=== PATIENT | male | born 1980 | race Caucasian/White ===

== ENCOUNTER → 2021-12-12 15:36 | Outpatient (CLI) | payer BC, SELFPAY ==
--- NOTE | ~2021-12-12 | XR_ITS ---
[id number] INDICATION: Neck pain TECHNIQUE: 4 views of the cervical spine. FINDINGS: No prior studies for comparison. The cervical spine is visualized to the cervicothoracic junction. There is no prevertebral soft tiss ue swelling, listhesis, or loss of vertebral body height. Intervertebral disc spaces are normal. Th e osseous central canal is patent. No displaced cervical spine fractures are identified. IMPRESSION: 1. No acute osseous abnormality of the cervical spine. Reviewed, dictated and finalized at location B. 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
== END ==
PROVIDERS: Visit Provider Nurse Practitioner Family
DX: M54.2 Cervicalgia (principal)
CPT/HCPCS: 72040

== ENCOUNTER → 2022-01-28 00:26 | Outpatient (CLI) | payer BC, SELFPAY ==
[2022-01-28 12:03] LABS: SARS-CoV-2 RNA PCR Negative
== END ==
PROVIDERS: PCP Family Medicine; Visit Provider Plastic Surgery
DX: Z01.812 Encounter for preprocedural laboratory examination (principal); Z20.822 Contact with and (suspected) exposure to COVID-19
CPT/HCPCS: C9803; U0003; U0005

== ENCOUNTER 2022-01-31 01:42 | Day surgery (SDC) | payer BC, SELFPAY ==
[2022-01-28 09:25] VITALS: BMI 23.0
--- NOTE | 2022-01-28 09:34 | PC.NURSE ---
Report to the Outpatient Waiting Room, entrance under the green pavilion located off [facility], at time 0915 on date 01/31/22. OR Time: 1115. - You and your visitor will be asked a series of questions to screen for COVID 19 for your protection. - A mask is required within the hospital. One visitor will be allowed to accompany the patient into the hospital. Patients visitor will be instructed to remain with patient at all times or leave the building. We will allow the visitor to come back to the postoperative area when patient is ready. Preoperative COVID Testing Requirements: COVID TEST 01/28 AT 0845 No COVID Test needed if: (proof is required; if not received patient will have Rapid Test prior to entry) - Patient has received COVID Vaccine at least 14 days prior to procedure date or - Patient has positive COVID test result within last 90 days of surgery date. COVID Test needed if above criteria is not met If not COVID vaccinated a COVID test must be conducted within 72 hours of surgery and patient is asked to isolate self from time of testing until procedure. You will go to the [facility] for your COVID testing. The [facility] is located at the corner of [address] [facility]. You will only be called if COVID results are positive and your surgeon may reschedule your elective surgery date. Patients may have clear liquids (water, carbonated beverages, clear teas, apple juice) until 3 hours prior to surgery with a maximum of 20 ounces. - No food from midnight until time of surgery Take the following medications with a SIP of water the morning of surgery: NONE Medications to discontinue per physician: N/A Date to take last dose: N/A Please no make-up, nail bengali, hairspray, perfume, deodorant, or body powder the day of surgery. No jewelry (including any body piercings) or valuables the day of surgery, leave them at home. Please take a shower or bath the night before, or the morning of, surgery with an antibacterial soap. Wear comfortable, loose fitting clothing. - Jewelry must be removed prior to entering the operating room. Rings and piercings that are not removed may be cut off. - The hospital will not accept responsibility for valuables. - Please leave all valuables, including medications, at home the day of surgery. If you are going home after surgery, a licensed driver operator must drive you home. - NO public transportation without another adult. - We recommend that an adult stay with you for 24 hours following discharge. - We also recommend that you do not drive, make important decision, drink alcoholic beverages, or take any drugs that were not prescribed by your health care provider for at least 24 hours after your discharge time. Follow any additional instructions given to you from your surgeon. Telephone instructions given to MATTHEW LEE and asked if any additional questions and then verbalized understanding. Patient advised to call surgeon office or pre surgery nurse liaison [phone] if any additional questions.
--- NOTE | 2022-01-31 07:09 | WPDHPUPDATE1 ---
History and Physical Update Update Date/Time: 01/31/22 07:09 History and Physical has been reviewed, including an updated exam of the patient. There are NO changes in the patient's condition. Risks, benefits, and alternatives have been discussed and questions answered. Patient agrees to proceed with procedure.
--- NOTE | 2022-01-31 07:19 | WPDANESEPPF ---
Anes - Initial Pre Proc Eval Procedure: Operation Date: 01/31/22 11:15 Proposed Procedures p Bilateral Open Carpal Tunnel Release - lFo Rasheed MD <Porfirio Black MD - Last Filed: 01/31/22 10:52> Date/Time: 01/31/22 07:19 <Porfirio Black MD - Last Filed: 01/31/22 10:52> Surgeon: Flo Rasheed MD <Porfirio Black MD - Last Filed: 01/31/22 10:52> Pre Op Diagnosis: bilat carpal tunnel syndrome <Porfirio Black MD - Last Filed: 01/31/22 10:52> Patient Data Age: 41 Gender: M Height: 1.8 m Weight: 74.84 kg <Porfirio Black MD - Last Filed: 01/31/22 10:52> Allergies Allergy/AdvReac Type Severity Reaction Status Date / Time SURGICAL GLUE Allergy Blister Uncoded 01/28/22 09:24 <Porfirio Black MD - Last Filed: 01/31/22 10:52> Home Medications Medication Instructions Recorded Confirmed Type No Home Medications 01/28/22 01/28/22 History <Porfirio Black MD - Last Filed: 01/31/22 10:52> Patient hx anesthesia problems: none <Villa Kelly DO - Last Filed: 01/31/22 10:16> Family hx anesthesia problems: none <Villa Kelly DO - Last Filed: 01/31/22 10:16> Results Review: All pre-operative results and documents have been reviewed as part of the pre-operative evaluation. <Porfirio Black MD - Last Filed: 01/31/22 10:52> [facility] Past Medical History Medical History: Medical History (Updated 01/31/22 @ 07:20 by Porfirio Black MD) Anxiety Bilateral carpal tunnel syndrome BMI 23.0-23.9, adult Cervical pain Hernia Ulnar neuropathy <Porfirio Black MD - Last Filed: 01/31/22 10:52> Family History Family History: Family History Father No problems noted. Mother Arthritis Sibling No problems noted. 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 Gender identity (if verbalized by the patient): Male Spiritual care concerns: No <Porfirio Black MD - Last Filed: 01/31/22 10:52> Anes - Eval Final PreProcedure Day of Procedure 01/31/22 07:19 <Porfirio Black MD - Last Filed: 01/31/22 10:52> Patient weight: normal <Porfirio Black MD - Last Filed: 01/31/22 10:52> Heart: regular rate and rhythm <Porfirio Black MD - Last Filed: 01/31/22 10:52> Lungs: clear to auscultation and normal air movement <Porfirio Black MD - Last Filed: 01/31/22 10:52> Airway: Mallampati scale class II <Porfirio Black MD - Last Filed: 01/31/22 10:52> Neurological: alert and oriented <Porfirio Black MD - Last Filed: 01/31/22 10:52> Last oral intake: >/= 8 hours <Porfirio Black MD - Last Filed: 01/31/22 10:52> ASA classification: II <Porfirio Black MD - Last Filed: 01/31/22 10:52> Emergent: no <Porfirio Black MD - Last Filed: 01/31/22 10:52> Anesthetic plan: proceed <Porfirio Black MD - Last Filed: 01/31/22 10:52> Anesthesia type and monitoring: general GIVS and LMA <Porfirio Black MD - Last Filed: 01/31/22 10:52> Results Review: All pre-operative results and documents have been reviewed as part of the pre-operative evaluation. <Porfirio Black MD - Last Filed: 01/31/22 10:52> Informed Consent: The patient's anesthetic plan and its attendant risks and benefits were discussed with the patient/family/POA. Questions were solicited and answers provided to the satisfaction of the patient/family/POA. <Porfirio Black MD - Last Filed: 01/31/22 10:52
[2022-01-31] MEDS: LACTATED RINGERS 1,000 ML 30 ML IV CONT (10:15)
[2022-01-31] MEDS: MIDAZOLAM HCL (*CRX) 2 MG/2 ML VIAL IV PUSH (10:29)
[2022-01-31 10:31] VITALS: BP 126/95; PULSE 63; RESP 16; TEMP 36.4; O2SAT 100
[2022-01-31] MEDS: LIDO 1%/EPINEPHRINE/PF 1:200,000 30 ML VIAL INFILTRATE (11:50)
[2022-01-31 12:00] VITALS: BP 139/69; BP 164/88; PULSE 62; PULSE 66; RESP 16; O2SAT 100
--- NOTE | 2022-01-31 12:05 | W.PM.PROC2 ---
Procedure Note - Detailed Date of Procedure 01/31/22 Pre-op Diagnosis bilat carpal tunnel syndrome Post-op Diagnosis Same Procedure Performed Bilateral open carpal tunnel release Surgeon Flo Rasheed MD Clinical Training Coordinator Mindy Anesthesia [facility] Description of Procedure The 2 carpal tunnels were marked on the patient in the holding area. He was then taken to the operating room where he was placed supine on the operating table. He was given IV sedation and the 2 extremities were prepped on separate hand tables. Time-out was held and confirmed. The markings were remade on the palm each side and each was locally infiltrated with 1% lidocaine with epinephrine. Attention was turned to the right side 1st where the tourniquet was inflated 250 mmHg. Incision was made as marked and dissection was carried bluntly through the subcutaneous tissue to the palmar aponeurosis. This and the transverse retinaculum were incised with a 15. Blade. Under 3 point retraction the retinaculum was divided distally and then proximally to completely release it. There was no unusual anatomy noted. The skin wound was closed with interrupted 4-0 nylon and a bandage applied. The tourniquet was released. Attention was turned to the left side. The tourniquet was not utilized on this side but was present the IV was in the mid forearm. The incision was made as marked and dissection was carried bluntly through the subcutaneous tissue. Several bleeding points were electrocoagulated. The transverse retinaculum and the palmar aponeurosis were incised with a 15. Blade opening the canal. Under 3 point retraction the ligament was divided distally and proximally to completely release it. Again no unusual anatomy was noted. The skin was closed with interrupted 4-0 nylon sutures and the usual bandage applied. Patient was discharged from the operating room stable condition.He has a instructions in wound care and follow-up. A prescription for hydrocodone 7. Was sent to his pharmacy Estimated Blood Loss 2 Drains No Packing No Pathology None sent Complications No immediate complications Condition Stable Disposition Same day
[2022-01-31 12:30] VITALS: BP 141/83; PULSE 65; RESP 16
[2022-01-31 13:00] VITALS: BP 144/66; PULSE 66; RESP 16
== END 2022-01-31 13:10 | disposition home or self-care (01) ==
PROVIDERS: PCP Family Medicine; Visit Provider Plastic Surgery
PROC: (CPT 64721; principal; 2022-01-31 11:15)
DX: G56.03 Carpal tunnel syndrome, bilateral upper limbs (principal)
CPT/HCPCS: 64721; C9803; J1100; J2250; J2405; J2704; J3010; J7120; U0003; U0005

== ENCOUNTER 2022-08-10 08:35 | Outpatient (CLI) | payer BC, SELFPAY ==
--- NOTE | 2022-08-10 08:41 | ECHO_ITS ---
Patient Info Name: Terrance Yañez Age: 41 years : 1980 Gender: Male Ht: 71 in Wt: 170 lbs BSA: 1.97 m2 HR: 62 bpm BP: 117 / 66 mmHg Technical Quality: Good Exam Date: 08/10/2022 8:59 AM Exam Location: [facility] Patient Status: Outpatient Admit Date: 08/10/2022 Staff Ordering Physician: Liss Kulkarni PAC Switchboard Receptionist: Inge Hernandez RDCS Attending Provider: Liss Kulkarni PAC Referring Physician: Cayla RODRIGUEZ; Exam Type: CA echo doppler color flow Study Info Indications - post covid R01.1 - Cardiac murmur, unspecified Complete two-dimensional, color flow and Doppler transthoracic echocardiogram is performed. Summary 1. Complete two-dimensional, color flow and Doppler transthoracic echocardiogram is performed. 2. Left ventricular chamber dimension is normal. 3. Left ventricular systolic function is normal, estimated at 60-65%. 4. The left ventricular diastolic function is normal. 5. E/e' 5 is not elevated. 6. There is mild mitral valve regurgitation. 7. There is mild tricuspid valve regurgitation. 8. No pulmonary hypertension, estimated pulmonary arterial systolic pressure is 29 mmHg. Left Ventricle E/e' 5 is not elevated. Left ventricular chamber dimension is normal. Left ventricular systolic function is normal, estimated at 60-65%. The left ventricular diastolic function is normal. Right Ventricle Right ventricular systolic function is normal and with normal TAPSE 2.3 cm. Right ventricular chamber dimension is normal. Left Atria Left atrial chamber dimension is normal. Right Atria Right atrial chamber dimension is normal. Aortic Valve The aortic valve is trileaflet. There is no aortic valve stenosis. There is no aortic valve regurgitation. Pulmonic Valve There is no pulmonic regurgitation. Mitral Valve There is no mitral valve stenosis. There is mild mitral valve regurgitation. Tricuspid Valve There is mild tricuspid valve regurgitation. No pulmonary hypertension, estimated pulmonary arterial systolic pressure is 29 mmHg. Pericardium/Pleural There is no pericardial effusion. Inferior Vena Cava Normal inferior vena cava with >50% collapse upon inspiration consistent with normal right atrial pressure, 5 mmHg. Aorta The aortic root size at the sinus of Valsalva is normal. Left Ventricular Outflow Tract Name Value Normal LVOT 2D LVOT Diameter 2.0 cm LVOT Doppler LVOT Peak Gradient 5 mmHg LVOT Mean Gradient 3 mmHg LVOT VTI 25 cm LVOT VTI/AV VTI Ratio 0.9 LVOT Stroke Volume 77 ml LVOT CO 16.4 l/min LVOT CI 8.4 l/min/m2 Pulmonic Valve Name Value Normal PV Doppler PV
--- NOTE | 2022-08-13 15:08 | WPDHOLTEREM ---
Holter/Event Monitor Holter/Event Monitor Date of procedure: 08/10/22 Holter/Event Procedure: 24 Hr Holter Monitor Indications: Palpitations Conclusion: 1. 24 hour holter monitor on 08/10/22. 2. Underlying rhythm is sinus rhythm with sinus arrhythmia. HR range 45-115 bpm; average HR 71 bpm. 3. There are 59 premature supraventricular complexes and 7 supraventricular couplets. No supraventricular tachycardia. 4. There are 1 premature ventricular complex and 1 ventricular couplet. No ventricular tachycardia. 5. No sinoatrial or atrioventricular blocks. No signficant pauses greater than 2 seconds. 6. No symptoms available for correlation.
== END 2022-08-10 08:36 | disposition home or self-care (01) ==
PROVIDERS: PCP Family Medicine; Visit Provider Physician Assistant Medical
DX: R01.1 Cardiac murmur, unspecified (principal); R00.2 Palpitations; I34.0 Nonrheumatic mitral (valve) insufficiency; I36.1 Nonrheumatic tricuspid (valve) insufficiency
CPT/HCPCS: 93225; 93226; 93306

== ENCOUNTER 2023-02-25 09:19 | Emergency (ER) | payer BC, SELFPAY ==
--- NOTE | ~2023-02-25 | CT_ITS ---
Non-contrast CT scan of the Abdomen and Pelvis Clinical indication: Abdominal pain Technique: 2.5 mm axial scans were obtained through the abdomen and pelvis without intravenous or or al contrast. Dose reduction technique was used on this scan by utilizing automated exposure control a nd iterative reconstruction technique. The dose-length product (DLP) was 216.37 mGy-cm. Findings: Images through the lung bases reveal 7 mm pleural-based pulmonary nodule at the left lung base, possible minimal peripheral calcification (axial image 16). There is a similar-appearing 5 mm p leural-based nodule at the right middle lobe (axial image 2).. 2 mm nonobstructing right renal stone noted. No left renal stone seen. No ureteral stone or hydroneph rosis on either side. The liver, spleen, pancreas, gallbladder, and adrenals appear normal. There is no aortic aneurysm. There is no evidence of bowel obstruction. No evidence for appendicitis. Images through the pelvis were performed. There is no evidence of ascites or lymphadenopathy. Urinary bladder unremarkable. Prostate gland and seminal vesicles are unremarkable. Minimal wedging deformit y of L1 noted. Impression: 2 mm nonobstructing right renal stone. Pulmonary nodules at the lung bases, as detailed above. According to Fleischner Society criteria, for a low-risk patient, recommend 6-12 month follow-up CT, then consider additional 18-[address] For a high-risk patient, follow-up CT scans at 6-12 months and at 18-24 months are recommended. Minimal anterior wedging deformity of L1. Reviewed, dictated and finalized at location . Impression: 2 mm nonobstructing right renal stone. Pulmonary nodules at the lung bases, as detailed above. According to Fleischner Society criteria, for a low-risk patient, recommend 6-12 month follow-up CT, t hen consider additional 18-[address] For a high-risk patient, follow-up CT s cans at 6-12 months and at 18-24 months are recommended. Minimal anterior wedging deformity of L1.
[2023-02-25 09:22] VITALS: BP 127/87; PULSE 71; RESP 16; TEMP 36.6; O2SAT 100
--- NOTE | 2023-02-25 09:31 | ED.BACK ---
HPI - Back Pain/Injury General Chief Complaint: Back Pain/Injury Stated Complaint: Back pain Time Seen by Provider: 02/25/23 09:29 Source: patient Mode of arrival: ambulatory Limitations: no limitations History of Present Illness HPI Narrative: Patient is a 42 y/o male who presents to the ED with c/o right mid back pain. Patient reports having pain in his right mid back since Friday. He states the pain somewhat radiates into his R leg, but not in his buttock region. Does not seem to radiate to abdomen. Pain is worse with movement, coughing, sneezing. He tried taking ibuprofen and a muscle relaxer yesterday without relief. He has not taken anything for pain today. Denies any known injury. He does have history of kidney stones in the past, which did not feel very similar. He reports nausea due to the pain, but denies vomiting, dysuria, hematuria, fevers, numbness, incontinence, weakness, CP, SOB, pleuritic pain. Related Data Allergies Allergy/AdvReac Type Severity Reaction Status Date / Time surgical glue Allergy Mild Rash Uncoded 02/25/23 09:30 Review of Systems Review of Systems: CONSTITUTIONAL: Denies fever, chills, or sweats. CARDIOVASCULAR: Denies chest pain. RESPIRATORY: Denies cough or dyspnea. GASTROINTESTINAL: See HPI. GENITOURINARY: See HPI. MUSCULOSKELETAL: See HPI. NEUROLOGIC: See HPI. All systems reviewed & are unremarkable except as noted in HPI and below PMFSH Past Medical History Medical History (Updated 02/25/23 @ 12:16 by Magdalene Hernandez PA-C) Anxiety Bilateral carpal tunnel syndrome BMI 23.0-23.9, adult Cervical pain Hernia Kidney stones Ulnar neuropathy Surgical History Surgical History No pertinent past surgical history Family History Family History Father No problems noted. Mother Arthritis Sibling No problems noted. 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 HEAD: Normocephalic, atraumatic. NECK: Supple. No adenopathy, no masses. RESPIRATORY: Airway patent, respirations nonlabored. Clear to auscultation bilaterally, no rales, rhonchi, wheezing. No pleuritic discomfort. CARDIOVASCULAR: Regular rate and rhythm without murmurs, rubs, or gallops. Radial pulses 2+ and equal bilaterally. ABDOMINAL: Soft, no significant tenderness throughout abdomen, nondistended, no hepatosplenomegaly. Normoactive BS. MUSCULOSKELETAL: Moves all extremities. Strength/ROM intact without gross deformities. Minimal midline thoracic spinal tenderness at level of lower scapula. Tenderness to palpation throughout right mid back region. No significant CVA tenderness to percussion. Positive straight leg raise on right. SKIN: Warm, dry, normal color. No rashes. NEURO: A&O X3. Speech clear. Cranial nerves II-XII grossly intact. Steady gait. No ataxic movements. PSYCHIATRIC: Appropriate mood and affect. Normal interaction. Course Vital Signs Vital signs: Vital Signs Temperature 97.8 F 02/25/23 09:22 Pulse Rate 71 02/25/23 09:22 Respiratory Rate 16 02/25/23 09:22 Blood Pressure 127/87 02/25/23 09:22 Pulse Oximetry 100 02/25/23 09:22 Oxygen Delivery Room Air 02/25/23 09:22 Temperature 97.8 F 02/25/23 09:22 Pulse Rate 75 02/25/23 11:57 Respiratory R
[2023-02-25] MEDS: ONDANSETRON INJ 4 MG/2 ML VIAL IV PUSH (09:52)
[2023-02-25] MEDS: MORPHINE SULFATE (*CRX) 4 MG/ML INJ IV PUSH (09:52)
[2023-02-25] MEDS: SODIUM CHLORIDE 0.9% IV 1,000 ML 999 ML IV CONT (09:52)
[2023-02-25 10:02] LABS: Basophils Absolute Auto 0.1 K/mm3 (0.0-0.1); Basophils Percent Auto 0.4 % (0.2-1.2); Eosinophils Absolute Auto 0.1 K/mm3 (0-0.3); Eosinophils Percent Auto 0.8 % (0-4.4); Immature Granulocyte Absolute 0.05 K/mm3 (0.00-0.031); Immature Granulocyte Percent A 0.4 % (0-0.5); Lymphocytes Absolute Auto 2.55 K/mm3 (0.9-3.2); Lymphocytes Percent Auto 20.7 % (18.3-44.2); Mean Corpuscular HGB Conc 33.3 g/dl (32-36); Mean Corpuscular Hemoglobin 29.2 pg (26-34); Mean Corpuscular Volume 87.5 fl (80-100); Monocytes Absolute Auto 0.6 K/mm3 (0.1-0.6); Monocytes Percent Auto 4.9 % (2.6-8.5); Neutrophils Percent Auto 72.8 % (45.5-73.1); Platelet Count Result 266 k/mm3 (150-375); Red Blood Count 5.14 M/mm3 (4.6-6.20); Red Cell Distribution Width 13.2 % (11.5-14.5); White Blood Count 12.3 K/mm3 (4.5-10.0)
[2023-02-25 10:13] LABS: Alanine Aminotransferase 19 U/L (6-50); Albumin Level 4.5 g/dL (3.5-5.1); Alkaline Phosphatase 63 U/L (38-126); Anion Gap 8 mmol/L (8-16); Aspartate Amino Transferase 26 U/L (17-59); Bilirubin,Total 0.5 mg/dL (0.2-1.3); Blood Urea Nitrogen 11 mg/dL (9-20); Calcium 8.6 mg/dL (8.4-10.2); Carbon Dioxide 26 mmol/L (22-30); Chloride 105 mmol/L (98-107); Estimated CRCL calculation 106 ml/min; Estimated Glomerular Filt Rate > 60; Glucose 89 mg/dL (65-110); Lipase 66 U/L (23-300); Potassium 3.8 mmol/L (3.4-5.0); Sodium 139 mmol/L (137-145)
[2023-02-25 10:14] LABS: Appearance Urine Clear (Clear); Bilirubin Urine Negative (Negative); Blood Urine Negative (Negative); Color Urine Yellow (Yellow); Glucose Urine UA Negative (Negative); Ketones Urine Negative (Negative); Leukocyte Esterase Ur Negative LEU/UL (Negative); Nitrate Urine Negative (Negative); Protein Urine Negative (Negative); Specific Grav Ur 1.012 (1.001-1.035); Urobilinogen Urine 0.2 mg/dL (<2.0); pH Urine 6.5 (5.0-9.0)
[2023-02-25 10:21] LABS: Add Urine Microscopic? NO
[2023-02-25] MEDS: CYCLOBENZAPRINE HCL 5 MG TABLET PO (10:58)
[2023-02-25] MEDS: KETOROLAC 30 MG/ML VIAL (*BKC) IV PUSH (10:58)
[2023-02-25 11:57] VITALS: BP 142/87; PULSE 75; RESP 17; O2SAT 99
== END 2023-02-25 12:26 | disposition home or self-care (01) ==
PROVIDERS: Emergency Provider Physician Assistant; PCP Family Medicine
DX: M54.6 Pain in thoracic spine (principal); N20.0 Calculus of kidney; R91.8 Other nonspecific abnormal finding of lung field; F17.290 Nicotine dependence, other tobacco product, uncomplicated; Z87.442 Personal history of urinary calculi
CPT/HCPCS: 36415; 74176; 80053; 81001; 81003; 83690; 85025; 96361; 96374; 96375; 99284; A9270; J1885; J2270; J2405; J7030

== ENCOUNTER 2023-11-04 13:34 | Outpatient (CLI) | payer OTHER, SELFPAY ==
--- NOTE | ~2023-11-04 | XR_ITS ---
Right Shoulder Technique: AP and scapular Y views were obtained. Clinical History: Pain Findings: No fracture or dislocation is seen. Osseous alignment is anatomic. The glenohumeral and acr omioclavicular joint spaces are preserved. Soft tissues are unremarkable. Impression: Unremarkable right shoulder radiographs. Reviewed, dictated and finalized at [facility]. R REPRESENTATIVE Impression: Unremarkable right shoulder radiographs.
--- NOTE | ~2023-11-04 | XR_ITS ---
Clinical Indication: Dyspnea PA and lateral views of the chest: Comparison: None Findings: The lungs are clear, without evidence of focal consolidation or pleural effusion. Cardiome diastinal silhouette is within normal limits. Bones and soft tissues are unremarkable. Impression: Normal chest. Reviewed, dictated and finalized at location . S HAND Impression: Normal chest.
== END 2023-11-04 13:35 | disposition home or self-care (01) ==
LOC: ANHIMG 13:36
PROVIDERS: PCP Family Medicine; Visit Provider Physician Assistant
DX: M25.511 Pain in right shoulder (principal); R06.09 Other forms of dyspnea
CPT/HCPCS: 71046; 73030

== ENCOUNTER 2023-11-17 10:15 | Outpatient (RCR) | payer OTHER, SELFPAY ==
--- NOTE | 2023-10-16 10:21 | PTOPEVAL1 ---
Assessment and note entered by Natan Alvarado, PT Evaluation Information Assessment Status Evaluation Diagnosis Right shoulder pain, Shoulder weakness Onset 09/14/23 Subjective Information Reports that he was rolling out of bed and felt a pop in his shoulder. Currently all of the pain is in the shoulder superior and in shoulder blade. No headaches but increase in neck pain. He is not sleeping well at this point and that is his biggest issue. He is having trouble lifting over his head and behind his back. No history of any shoulder surgery. He was on prednisone for 1 week. Does not feel that it helped at this time. He is occasionally getting pain and locking in left wrist. Reported Pain Level Pain Score 2: Self Report Assessment PT Clinical Summary Patient presents with signs and symptoms consistent with shoulder impingement and compensated upper trapezius substitution creating cervical compression and limited shoulder mobility against gravity. Patient will benefit from skilled therapy to address functional deficits to improve strength and functional use of shoulder with reduced pain. Plan of Care Interventions Electrical Stimulation,Hot Pack/Cold Pack,Manual Therapy,Neuro Re-education,Therapeutic Activities, Therapeutic Exercise PT Services Indicated Yes Treatment Frequency and 2x/week for 8 visits Duration These treatments will address the objective and functional deficits as defined above. The patient will be advanced safely and appropriately in order for the patient to progress towards his/her prior level of function. Additional exercises will be introduced and as well as a comprehensive home exercise program upon discharge, if needed, ?to ensure carryover of functional gains achieved in the clinic. This treatment plan has been reviewed and agreement upon by the patient.
--- NOTE | 2023-10-16 10:21 | OPREHPOC ---
Outpatient Therapy Plan of Care This is a Multidisciplinary Plan of Care that may contain components documented by all disciplines (PT, OT, and ST.) PT Problem 1 PT Problem #1 Knowledge Deficit PT Goal 1 Goal Independent with HEP Target Visit 4 PT Problem 2 PT Problem #2 Pain PT Goal 1 Goal Report no pain with sleeping Target Visit 4 PT Problem 3 PT Problem #3 Impaired Strength PT Goal 1 Goal Improve R shoulder internal rotation strength to 5 /5 to improve shoulder stability Target Visit 8 PT Goal 2 Goal Improve R shoulder flexion strength to 5/5 to improve functional lifting ability Target Visit 8 PT Problem 4 PT Problem #4 Impaired Functional ADLs PT Goal 1 Goal Demonstrate negative Higgins-Lazaro test on R UE indicating reduced impingement symptoms Target Visit 8
--- NOTE | 2023-11-17 11:04 | PTOPDC ---
Assessment and note entered by Natan Alvarado, PT Evaluation Information Assessment Status Discharge Diagnosis Right shoulder pain, Shoulder weakness Onset 09/14/23 Subjective Information Reports that he was rolling out of bed and felt a pop in his shoulder. Currently all of the pain is in the shoulder superior and in shoulder blade. No headaches but increase in neck pain. He is not sleeping well at this point and that is his biggest issue. He is having trouble lifting over his head and behind his back. No history of any shoulder surgery. He was on prednisone for 1 week. Does not feel that it helped at this time. He is occasionally getting pain and locking in left wrist. Reported Pain Level Pain Score 2: Self Report Assessment PT Clinical Summary Patient met all goals for therapy and is suitable for discharge to [facility] at this time. Understands conditions of shoulder and HEP to continue to address. Plan of Care PT Services Indicated D/C to [facility]
--- NOTE | 2023-11-17 11:05 | OPREHPOC ---
Outpatient Therapy Plan of Care This is a Multidisciplinary Plan of Care that may contain components documented by all disciplines (PT, OT, and ST.) PT Problem 1 PT Problem #1 Knowledge Deficit PT Goal 1 Goal Independent with HEP Target Visit 4 Progress Met PT Problem 2 PT Problem #2 Pain PT Goal 1 Goal Report no pain with sleeping Target Visit 4 Progress Met PT Problem 3 PT Problem #3 Impaired Strength PT Goal 1 Goal Improve R shoulder internal rotation strength to 5 /5 to improve shoulder stability Target Visit 8 Progress Met PT Goal 2 Goal Improve R shoulder flexion strength to 5/5 to improve functional lifting ability Target Visit 8 Progress Partially Met Comment Significant improvement. Minor strength deficit. PT Problem 4 PT Problem #4 Impaired Functional ADLs PT Goal 1 Goal Demonstrate negative Higgins-Lazaro test on R UE indicating reduced impingement symptoms Target Visit 8 Progress Met
== END 2023-11-17 12:51 | disposition home health service (06) ==
LOC: ANHPT 10:15
PROVIDERS: PCP Family Medicine; Visit Provider Nurse Practitioner Family
DX: M25.511 Pain in right shoulder (principal)
CPT/HCPCS: 71046; 73030; 97014; 97110; 97140; 97161; 97530; G0283

== ENCOUNTER 2023-12-03 09:38 | Outpatient (CLI) | payer OTHER, SELFPAY ==
--- NOTE | ~2023-12-03 | XR_ITS ---
XR chest 2V DATE: 12/03/2023 09:56 INDICATION: Midline chest pain. Dyspnea. TECHNIQUE: PA and lateral views COMPARISON: 11/04/2023 PA and lateral chest FINDINGS: Normal heart size. No hilar or mediastinal enlargement. No pulmonary infiltrate or consolid ation, pleural effusion or pulmonary vascular congestion or pneumothorax is detected. IMPRESSION: No active cardiopulmonary disease Reviewed, dictated and finalized at location B. 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
== END 2023-12-03 09:39 | disposition home or self-care (01) ==
LOC: ANHIMG 09:40
PROVIDERS: PCP Family Medicine; Visit Provider Nurse Practitioner Family
DX: R06.09 Other forms of dyspnea (principal)
CPT/HCPCS: 71046

== ENCOUNTER 2024-01-27 09:31 | Outpatient (CLI) | payer OTHER, SELFPAY ==
--- NOTE | ~2024-01-27 | XR_ITS ---
Left Knee Technique: AP, lateral, and oblique views were obtained. Clinical History: Pain Findings: No fracture or dislocation is seen. Osseous alignment is anatomic. Joint spaces are preserv ed without degenerative or erosive change. Soft tissues are unremarkable. No joint effusion is seen. Impression: Unremarkable left knee radiographs. Reviewed, dictated and finalized at [facility]. Impression: Unremarkable left knee radiographs.
== END 2024-01-27 09:32 | disposition home or self-care (01) ==
PROVIDERS: PCP Family Medicine; Visit Provider Physician Assistant
DX: M25.562 Pain in left knee (principal)
CPT/HCPCS: 73562

== ENCOUNTER 2024-01-29 18:12 | Emergency (ER) | payer OTHER, SELFPAY ==
[2024-01-29 18:29] VITALS: BP 127/71; PULSE 82; RESP 18; TEMP 36.9; O2SAT 99
--- NOTE | 2024-01-29 20:31 | ED.GENADULT ---
HPI - General Adult General Chief complaint: Extremity Injury, Lower Stated complaint: left knee injury Time Seen by Provider: 01/29/24 20:19 Source: patient Mode of arrival: ambulatory Limitations: no limitations History of Present Illness HPI narrative: This is a 43-year-old male who presents to the ED with chief complaint of left knee pain following injury that occurred several days ago. Reports normal x-ray via PCP pain today. States that he continues to have some swelling and difficulty with range of motion and weight-bearing. Has been taking Tylenol and naproxen. He has not been icing the knee very much. States the initial injury occurred while working on his car. States he was in a squatted position when he twisted and felt a pop. He is able to bear some weight. Denies fevers, chills, nausea, vomiting, numbness or weakness. Related Data Allergies Allergy/AdvReac Type Severity Reaction Status Date / Time ketorolac [From Toradol] Allergy Intermediate Rash Verified 01/28/24 07:38 alcohol Allergy Mild Blister Verified 01/28/24 07:38 [From Mastisol Liquid Adhesive] gum mastic Allergy Mild Blister Verified 01/28/24 07:38 [From Mastisol Liquid Adhesive] methyl salicylate Allergy Mild Blister Verified 01/28/24 07:38 [From Mastisol Liquid Adhesive] storax Allergy Mild Blister Verified 01/28/24 07:38 [From Mastisol Liquid Adhesive] Review of Systems Review of Systems: All systems as dictated in HPI PMFSH Past Medical History Medical History Anxiety Bilateral carpal tunnel syndrome BMI 23.0-23.9, adult BMI 25.0-25.9,adult BMI 26.0-26.9,adult BMI 27.0-27.9,adult BMI 28.0-28.9,adult BMI 29.0-29.9,adult Cervical pain Hernia Kidney stones Ulnar neuropathy Surgical History Surgical History History of carpal tunnel surgery No pertinent past surgical history Family History Family History Father No problems noted. Mother Arthritis Sibling No problems noted. Social History Social History Smoking status: Current every day smoker Tobacco type: cigars Second hand tobacco smoke exposure: No Alcohol intake: current Alcohol use details: 4/YEAR Substance use: current Substance use type: marijuana Do You Feel Safe in your Home?: Yes Lack of Transportation: No Lack of Food: Never True Current Housing: I Have Housing Concerned About Future Housing: No Difficulty Paying Gas/Electric Bills: No Difficulty Paying for Meds: No Currently Unemployed: No Education: Associate Degree Difficulty w/ Childcare or Family Care: No Living arrangements: with family Occupation/Education: occupation 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 HEAD: Normocephalic, atraumatic. EYES: PERRLA and EOMI. ENT: Nares clear, no rhinorrhea or epistaxis. Mucous membranes moist. Oropharynx without tonsillar hypertrophy exudate or other lesions. NECK: Supple. No adenopathy or masses. CHEST: No respiratory distress. Clear to auscultation. No wheezes rales or rhonchi HEART: Regular rate and rhythm. No murmur heard. Normal peripheral pulses. ABDOMEN: Soft, nontender, nondistended, normal active bowel sounds. MSK: LLE: Mild left knee effusion. Mild tenderness throughout the knee joint. No significant ligament laxity. Able to bear weight. Near full range of motion actively. Neurovascular intact distally RLE: Benign SKIN: Warm, dry, no rash. NEURO: Alert and oriented x3. No focal deficits. PSYCH: Normal mood and affect. Course Vital Signs
== END 2024-01-29 21:39 | disposition home or self-care (01) ==
PROVIDERS: Emergency Provider Physician Assistant; PCP Family Medicine
DX: S89.92XD Unspecified injury of left lower leg, subsequent encounter (principal); Z87.442 Personal history of urinary calculi; F17.290 Nicotine dependence, other tobacco product, uncomplicated; X58.XXXD Exposure to other specified factors, subsequent encounter
CPT/HCPCS: 99282

== ENCOUNTER 2024-02-22 12:27 | Outpatient (CLI) | payer OTHER, SELFPAY ==
--- NOTE | ~2024-02-22 | MR_ITS ---
EXAMINATION: MR knee LT wo con DATE: 02/22/2024 13:10 INDICATION: Left knee pain. TECHNIQUE: Magnetic resonance imaging (MRI) of the left knee was performed without intravenous contra st. Sequences included axial PD-weighted FS FSE, coronal PD-weighted FSE and PD-weighted FS FSE, sagi ttal PD-weighted FSE, and sagittal T2-weighted FS FSE. COMPARISON: Left knee radiographs 01/27/2024 FINDINGS: Medial compartment: There is an undersurface horizontal tear of body and posterior horn of medial meniscus. There is cart ilage surface irregularity of tibial condyle and femoral condyle. There is a subchondral insufficienc y fracture of medial tibial condyle with low signal fracture line and edema-like marrow signal intens ity. Lateral compartment: Lateral meniscus is discoid. Lateral compartment cartilage is normal. Patellofemoral compartment: Patellar cartilage is normal. Trochlear cartilage is normal. Ligaments and tendons: The anterior and posterior cruciate ligaments are normal. There are changes of prior sprains of media l collateral ligament and tibial collateral ligament characterized by thickening and increased signal intensity proximally. There is mild patellar tendinopathy. Fluid: There is a small knee joint effusion. There is mild prepatellar and superficial infrapatellar bursiti s. IMPRESSION: 1. Subchondral insufficiency fracture of medial tibial condyle. 2. Mild chondrosis of medial compartment. 3. Tear of medial meniscus. 4. Small knee joint effusion. Reviewed, dictated and finalized at location A.
== END 2024-02-22 12:28 | disposition home or self-care (01) ==
LOC: ANHIMG 12:28
PROVIDERS: PCP Family Medicine; Visit Provider Nurse Practitioner Family
DX: S83.242D Other tear of medial meniscus, current injury, left knee, subsequent encounter (principal); X58.XXXD Exposure to other specified factors, subsequent encounter; M25.462 Effusion, left knee
CPT/HCPCS: 73721

== ENCOUNTER 2024-03-04 00:17 | Day surgery (SDC) | payer OTHER, SELFPAY ==
[2024-02-27 09:47] VITALS: BMI 26.5
--- NOTE | 2024-02-27 09:54 | PC.NURSE ---
Report to the Outpatient Waiting Room, entrance under the green pavilion located off [facility], at time _0600_ on date _[id number]_. Planned Procedure Time: _0730_. Time changes happen often and if your time is changed the preop area will call you the afternoon before. - You and your visitor will be asked to self-screen and do not enter if you have any COVID symptoms. - A mask is optional within the hospital at this time. Patients may have clear liquids (water, carbonated beverages, clear teas, apple juice) until 3 hours prior to surgery with a maximum of 20 ounces. - No food from midnight until time of surgery Take the following medications with a SIP of water the morning of surgery: ____Pain pill if needed DO NOT STOP ANY OF YOUR OTHER PRESCRIPTION MEDICATIONS PRIOR TO SURGERY ?EXCEPT THE FOLLOWING Medications to discontinue per physician None Date to take last dose Please no make-up, nail nepali, hairspray, perfume, deodorant, or body powder the day of surgery. No jewelry (including any body piercings) or valuables the day of surgery, leave them at home. Please take a shower or bath the night before, or the morning of, surgery with an antibacterial soap. Wear comfortable, loose fitting clothing. - Jewelry must be removed prior to entering the operating room. Rings and piercings that are not removed may be cut off. - The hospital will not accept responsibility for valuables. - Please leave all valuables, including medications, at home the day of surgery. If you are going home after surgery, a licensed screw driver operator must drive you home. - NO public transportation without another adult if you receive anesthesia. - We recommend that an adult stay with you for 24 hours following discharge. - We also recommend that you do not drive, make important decision, drink alcoholic beverages, or take any drugs that were not prescribed by your health care provider for at least 24 hours after your discharge time. Follow any additional instructions given to you from your surgeon. If you or anyone in your household have experienced Covid symptoms in the past week, please notify your surgeon or the nurse liaison at the phone number below for possible testing. Telephone instructions given to __David___and asked if any additional questions and then verbalized understanding. Patient advised to call surgeon office or pre surgery nurse liaison [phone] if any additional questions.
[2024-03-04] VITALS (8 sets, daily range): BP systolic 125–159; BP diastolic 75–94; PULSE 69–88; RESP 14–27; TEMP 36.6–36.7; O2SAT 95–100
[2024-03-04] MEDS: LACTATED RINGERS 1,000 ML 30 ML IV CONT (06:45)
[2024-03-04] MEDS: ACETAMINOPHEN 500 MG TABLET 1000 MG PO (06:45)
--- NOTE | 2024-03-04 06:51 | WPDANESEPPF ---
Anes - Initial Pre Proc Eval Procedure: Operation Date: 03/04/24 07:30 Proposed Procedures p Left Knee Arthroscopy, Debride Meniscus, Synovectomy, Chondroplasty, Proceed As Indicated - Yoan Joya MD Date/Time: 03/04/24 06:51 Surgeon: Yoan Joya MD Pre Op Diagnosis: left knee pain,medial meniscur tear,chondromylasia Patient Data Age: 43 Gender: M Height: 1.8 m Weight: 86.4 kg Allergies Allergy/AdvReac Type Severity Reaction Status Date / Time ketorolac [From Toradol] Allergy Intermediate Rash Verified 02/27/24 09:46 alcohol Allergy Mild Blister Verified 02/27/24 09:46 [From Mastisol Liquid Adhesive] gum mastic Allergy Mild Blister Verified 02/27/24 09:46 [From Mastisol Liquid Adhesive] methyl salicylate Allergy Mild Blister Verified 02/27/24 09:46 [From Mastisol Liquid Adhesive] storax Allergy Mild Blister Verified 02/27/24 09:46 [From Mastisol Liquid Adhesive] Home Medications Medication Instructions Recorded Confirmed Type lorazepam 0.5 mg tablet 0.5 mg PO BID PRN anxiety #30 tabs 09/09/23 02/27/24 Rx cyclobenzaprine 10 mg tablet 10 mg PO TID PRN muscle spasm #20 10/22/23 02/27/24 Rx tabs omeprazole 40 mg capsule,delayed 40 mg PO DAILY #90 caps 01/28/24 02/27/24 Rx release varenicline 0.5 mg (11)-1 mg (42) See Rx Instructions PO PER PKG DIR 01/28/24 02/27/24 Rx tablets in a dose pack #53 ea hydrocodone 5 mg-acetaminophen 325 1 tablet PO Q8H PRN pain #10 tabs 02/23/24 02/27/24 Rx mg tablet Patient hx anesthesia problems: post op nausea/vomiting Family hx anesthesia problems: none Results Review: All pre-operative results and documents have been reviewed as part of the pre-operative evaluation. [facility] Past Medical History Medical History Acute medial meniscus tear of left knee Anxiety Bilateral carpal tunnel syndrome BMI 23.0-23.9, adult BMI 25.0-25.9,adult BMI 26.0-26.9,adult BMI 27.0-27.9,adult BMI 28.0-28.9,adult BMI 29.0-29.9,adult Cervical pain Hernia History of foot fracture Kidney stones Ulnar neuropathy Surgical History Surgical History History of carpal tunnel release History of carpal tunnel surgery No pertinent past surgical history Family History Family History Father No problems noted. Mother Arthritis Sibling No problems noted. Social History Social History Years smoked: 5 Smoking status: Never smoker Tobacco type: cigars Second hand tobacco smoke exposure: No Additional smoking assessment comments: 2 or 3 cigars a day Alcohol intake: current Alcohol use details: 4/YEAR Substance use: current Substance use type: marijuana Other substance usage details: daily in evening Do You Feel Safe in your Home?: Yes Lack of Transportation: No Lack of Food: Never True Current Housing: I Have Housing Concerned About Future Housing: No Difficulty Paying Gas/Electric Bills: No Difficulty Paying for Meds: No Currently Unemployed: No Education: Associate Degree Difficulty w/ Childcare or Family Care: No Living arrangements: with family Occupation/Education: occupation 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 ) Neurological: alert and oriented Last oral intake: >/= 8 hours ASA classification: II Emergent: no Anesthetic plan: proceed Anesthesia type and monitoring: general LM
--- NOTE | 2024-03-04 07:20 | WPDHPUPDATE1 ---
History and Physical Update Update Date/Time: 03/04/24 07:20 History and Physical has been reviewed, including an updated exam of the patient. There are NO changes in the patient's condition. Risks, benefits, and alternatives have been discussed and questions answered. Patient agrees to proceed with procedure.
[2024-03-04] MEDS: ceFAZolin 2 GM/D5W 50 ML 2 GM/50 ML BAG IVPB (07:23)
[2024-03-04] MEDS: SCOPOLAMINE 1 MG PATCH 1 PATCH TRANSDERM (07:30)
[2024-03-04] MEDS: BUPIVACAINE/EPINEPHRINE 0.5% 10 ML VIAL INFILTRATE (07:52)
[2024-03-04] MEDS: BUPivacaine HCL 0.25% PF 30 ML VIAL 10 ML INFILTRATE (07:53)
--- NOTE | 2024-03-04 08:39 | W.PM.PROC2 ---
Procedure Note - Detailed Date of Procedure 03/04/24 Pre-op Diagnosis left knee pain,medial meniscur tear,chondromylasia Post-op Diagnosis Same Procedure Performed Left knee arthroscopy with partial medial meniscectomy Surgeon Yoan Joya MD Anesthesia General Indications 43-year-old with left knee pain. MRI shows medial meniscus tear. He has failed conservative treatment medication, therapy and bracing. Presents for operative treatment. Findings Left knee grade 1 chondromalacia with. Complex tear posterior horn medial meniscus in the red-white zone. ACL and PCL intact. Lateral compartment and meniscus intact. Grade 1 chondromalacia patellofemoral articulation. Description of Procedure Informed consent given by patient. Operative extremity marked in preoperative holding area. Patient received intravenous antibiotics. Patient brought to operating room and underwent general anesthetic by anesthesia team. Positioned supine on operating room table. Left leg placed into a posterior thigh leg avila. Foot of the table dropped to 90? and right leg padded out of the field. Time-out performed confirming patient, site of surgery and plan. Left knee prepped and draped in usual sterile surgical fashion using ChloraPrep skin solution. Standard arthroscopic portals made by using a 11 blade knife for the anterior lateral portal 1st. Capsule penetrated bluntly. Camera and inflow started. The below operative findings noted. Intra-articular visualization used to position the anterior medial portal using 22 gauge spinal needle. A 11 blade knife used for the skin and blunt penetration of the capsule. 4.7 millimeter arthroscopic shaver introduced and partial medial meniscectomy of the loose and torn portion performed. Edge of meniscus completed with arthroscopic Wand. Arthroscopic Wand used to perform chondroplasty of the patellofemoral articulation and the medial femoral condyle. Shaver reintroduced and a synovectomy performed of the anterior fat pad and extensive synovium as well as medial and lateral plica. Bleeding points coagulated with Wand. Knee inspected, no loose pieces noted. 1 liter of irrigant infused and suction out. Arthroscopic cannulas removed. Skin closed with 4 nylon interrupted suture. Local anesthetic with 0.25% Marcaine. Sterile dressing applied. Patient awoken from anesthesia, extubated and taken to recovery room in stable condition. All sponge needle and instrument counts correct at the end of the case. Estimated Blood Loss 5 Tourniquet Time Total Tourniquet Time: 0 Drains No Packing No Pathology None sent Complications None Condition Stable Disposition PACU [facility] Billing Surgery - Charge Forward: Surgery Billing ([id number])
[2024-03-04] MEDS: oxyCODONE HCL (*CRX) 5 MG TAB IR PO (09:33)
== END 2024-03-04 10:05 | disposition home or self-care (01) ==
PROVIDERS: PCP Family Medicine; Visit Provider Orthopaedic Surgery
PROC: (CPT 29870; principal; 2024-03-04 07:30)
DX: S83.242A Other tear of medial meniscus, current injury, left knee, initial encounter (principal); M94.262 Chondromalacia, left knee; F41.9 Anxiety disorder, unspecified; F17.290 Nicotine dependence, other tobacco product, uncomplicated; F12.90 Cannabis use, unspecified, uncomplicated; Z79.891 Long term (current) use of opiate analgesic; Z98.890 Other specified postprocedural states
CPT/HCPCS: 29881; A9270; J0690; J1100; J1170; J1200; J2250; J2405; J2704; J3010; J7120

== ENCOUNTER 2024-03-07 07:39 | Emergency (ER) | payer OTHER, SELFPAY ==
[2024-03-07] VITALS (10 sets, daily range): BP systolic 108–131; BP diastolic 68–95; PULSE 50–78; RESP 14–20; TEMP 36.4; O2SAT 97–100
--- NOTE | ~2024-03-07 | XR_ITS ---
EXAMINATION: XR chest 2V DATE: 03/07/2024 08:04 INDICATION: Weakness. Dizziness. Nausea and vomiting. TECHNIQUE: Frontal and lateral views of the chest were obtained. COMPARISON: Chest 2 views 12/03/2023, CT abdomen and pelvis 02/25/2023 FINDINGS: There is no pneumonia, pleural effusion, or pneumothorax. The heart size is normal. IMPRESSION: 1. No acute cardiopulmonary disease. Reviewed, dictated and finalized at location A.
--- NOTE | 2024-03-07 07:48 | ECG_ITS ---
SEE SCANNED COPY FOR CONFIRMED REPORT MTDD
[2024-03-07 08:05] LABS: Basophils Absolute Auto 0.1 K/mm3 (0.0-0.1); Basophils Percent Auto 0.5 % (0.2-1.2); Eosinophils Absolute Auto 0.2 K/mm3 (0-0.3); Eosinophils Percent Auto 2.2 % (0-4.4); Hematocrit 47.4 % (42.0-52.0); Hemoglobin 15.7 g/dL (14.0-18.0); Immature Granulocyte Absolute 0.04 K/mm3 (0.00-0.031); Immature Granulocyte Percent A 0.4 % (0-0.5); Lymphocytes Absolute Auto 3.09 K/mm3 (0.9-3.2); Lymphocytes Percent Auto 29.9 % (18.3-44.2); Mean Corpuscular HGB Conc 33.1 g/dl (32-36); Mean Corpuscular Hemoglobin 28.9 pg (26-34); Mean Corpuscular Volume 87.1 fl (80-100); Mean Platelet Volume 10.9 fl (7.4-10.4); Monocytes Absolute Auto 0.8 K/mm3 (0.1-0.6); Monocytes Percent Auto 7.5 % (2.6-8.5); Neutrophils Absolute Auto 6.1 K/mm3 (1.3-6.7); Neutrophils Percent Auto 59.5 % (45.5-73.1); Platelet Count Result 263 k/mm3 (150-375); Red Blood Count 5.44 M/mm3 (4.6-6.20); Red Cell Distribution Width 12.9 % (11.5-14.5); White Blood Count 10.3 K/mm3 (4.5-10.0)
[2024-03-07] MEDS: diazePAM INJ (*CRX) 10 MG/2 ML SYRINGE 5 MG IV PUSH (08:18)
[2024-03-07] MEDS: ONDANSETRON INJ 4 MG/2 ML VIAL IV PUSH (08:18)
[2024-03-07] MEDS: SODIUM CHLORIDE 0.9% IV 1,000 ML 999 ML IV CONT ×2 (08:18→10:12)
[2024-03-07] MEDS: MECLIZINE HCL 25 MG TABLET PO (08:19)
[2024-03-07 08:27] LABS: Alanine Aminotransferase 21 U/L (6-50); Albumin Level 4.7 g/dL (3.5-5.1); Alkaline Phosphatase 64 U/L (38-126); Anion Gap 9 mmol/L (4-12); Aspartate Amino Transferase 28 U/L (17-59); Bilirubin,Total 0.4 mg/dL (0.2-1.3); Blood Urea Nitrogen 14 mg/dL (9-20); Calcium 9.5 mg/dL (8.4-10.2); Carbon Dioxide 24 mmol/L (22-30); Chloride 105 mmol/L (98-107); Estimated CRCL calculation 88 ml/min; Estimated Glomerular Filt Rate > 60; Glucose 96 mg/dL (65-110); Potassium 3.5 mmol/L (3.4-5.0); Sodium 138 mmol/L (137-145)
[2024-03-07 10:21] LABS: Appearance Urine Cloudy (Clear); Bacteria Urine None Seen /hpf; Bilirubin Urine Negative (Negative); Blood Urine Negative (Negative); Color Urine Yellow (Yellow); Glucose Urine UA Negative (Negative); Ketones Urine Negative (Negative); Leukocyte Esterase Ur Negative LEU/UL (Negative); Nitrate Urine Negative (Negative); Non Pathogenic Casts 0-2; Protein Urine Negative (Negative); RBC Urine 0-2 /hpf (0-2); Specific Grav Ur 1.012 (1.001-1.035); Squamous Epithelial Cell Urine None Seen /hpf (Few); Urobilinogen Urine 0.2 mg/dL (<2.0); WBC Urine 0-5 /hpf (0-3); pH Urine >=9.0 (5.0-9.0)
[2024-03-07 10:27] LABS: Add Urine Microscopic? YES
--- NOTE | 2024-03-07 11:34 | ED.GENADULT ---
HPI - General Adult General Chief complaint: Weakness Stated complaint: left leg pain, vomiting, diaphoretic, headache Time Seen by Provider: 03/07/24 07:44 History of Present Illness HPI narrative: patient is a 43-year-old male who presents the ER with nausea and vomiting and dizziness. Sudden onset this morning. Feels like vertigo he has had in the past. Feels unbalanced. Recently had knee surgery and is currently recovering. Reports mild headache. He has had tinnitus in his ears for the last 2 days. No sinus congestion or sore throat or productive cough. No chest pain or chest pressure. Related Data Allergies Allergy/AdvReac Type Severity Reaction Status Date / Time ketorolac [From Toradol] Allergy Intermediate Rash Verified 03/07/24 07:49 alcohol Allergy Mild Blister Verified 03/07/24 07:49 [From Mastisol Liquid Adhesive] gum mastic Allergy Mild Blister Verified 03/07/24 07:49 [From Mastisol Liquid Adhesive] methyl salicylate Allergy Mild Blister Verified 03/07/24 07:49 [From Mastisol Liquid Adhesive] storax Allergy Mild Blister Verified 03/07/24 07:49 [From Mastisol Liquid Adhesive] Review of Systems Review of Systems: All systems reviewed & are unremarkable except as noted in HPI and below Constitutional: Constitutional: Reports no additional constitutional complaints ENT: Reports vertigo, Reports dizziness, Denies nasal congestion and Denies sore throat Comments: tinnitus Cardiovascular: Cardiovascular: Reports no additional cardiovascular complaints Respiratory: Respiratory: Reports no additional respiratory complaints Musculoskeletal: Musculoskeletal: Reports no additional musculoskeletal complaints [facility] Past Medical History Medical History Acute medial meniscus tear of left knee Anxiety Bilateral carpal tunnel syndrome BMI 23.0-23.9, adult BMI 25.0-25.9,adult BMI 26.0-26.9,adult BMI 27.0-27.9,adult BMI 28.0-28.9,adult BMI 29.0-29.9,adult Cervical pain Hernia History of foot fracture Kidney stones Ulnar neuropathy Surgical History Surgical History History of carpal tunnel release History of carpal tunnel surgery No pertinent past surgical history Family History Family History Father No problems noted. Mother Arthritis Sibling No problems noted. Social History Social History Years smoked: 5 Smoking status: Never smoker Tobacco type: cigars Second hand tobacco smoke exposure: No Additional smoking assessment comments: 2 or 3 cigars a day Alcohol intake: current Alcohol use details: 4/YEAR Substance use: current Substance use type: marijuana Other substance usage details: daily in evening Do You Feel Safe in your Home?: Yes Lack of Transportation: No Lack of Food: Never True Current Housing: I Have Housing Concerned About Future Housing: No Difficulty Paying Gas/Electric Bills: No Difficulty Paying for Meds: No Currently Unemployed: No Education: Associate Degree Difficulty w/ Childcare or Family Care: No Living arrangements: with family Occupation/Education: occupation 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 HEAD: Normocephalic, atraumatic. EYES: PERRL and EOMI. Horizontal nystagmus in each direction. ENT: Mucous membranes moist. TMs normal bilaterally. CHEST: Clear to auscultation. No respiratory distress. HEART: Regular rate and rhythm. Normal peripheral pulses. ABDOMEN: Soft, nontender, nondistended. EXTREMITIES: Normal range of motion. No edema.
== END 2024-03-07 11:46 | disposition home or self-care (01) ==
PROVIDERS: Emergency Provider Emergency Medicine; PCP Family Medicine
DX: R42 Dizziness and giddiness (principal); F41.9 Anxiety disorder, unspecified; Z87.442 Personal history of urinary calculi
CPT/HCPCS: 36415; 71046; 80053; 81001; 85025; 93005; 96361; 96374; 96375; 99284; A9270; J2405; J3360; J7030

== ENCOUNTER 2024-05-08 08:01 | Emergency (ER) | payer OTHER, SELFPAY ==
--- NOTE | ~2024-05-08 | XR_ITS ---
EXAMINATION: XR chest 2V 05/08/2024 08:34 INDICATION: Cough and shortness of breath PROCEDURE: 2 view chest COMPARISON: 03/07/2024 FINDINGS: The lungs are clear. The cardiomediastinal silhouette is within normal limits. There are no pleural effusions. There is no pneumothorax suspected. IMPRESSION: 1: NO ACUTE CARDIOPULMONARY DISEASE. Reviewed, dictated and finalized at location B.
--- NOTE | 2024-05-08 08:12 | ED.SOB ---
HPI - SOB/Dyspnea General Chief Complaint: Upper Respiratory Infection Stated Complaint: sob,chest pain,wheezing Time Seen by Provider: 05/08/24 08:12 Source: patient Mode of arrival: ambulatory Limitations: no limitations History of Present Illness HPI Narrative: Terrance is a 43-year-old male who presents to the clinic today with complaints of shortness of breath, nasal congestion, runny nose, productive cough, ear pressure/pain for 3 days. Was prescribed a Z-Josh over the phone with his primary care provider but has not gotten any better since starting that. He denies any known sick contacts. He smokes 3 cigars a day but denies any known history of COPD or asthma. Oxygen saturation is 98% on room air. Related Data Allergies Allergy/AdvReac Type Severity Reaction Status Date / Time ketorolac [From Toradol] Allergy Intermediate Rash Verified 05/08/24 08:23 alcohol Allergy Mild Blister Verified 05/08/24 08:23 [From Mastisol Liquid Adhesive] gum mastic Allergy Mild Blister Verified 05/08/24 08:23 [From Mastisol Liquid Adhesive] methyl salicylate Allergy Mild Blister Verified 05/08/24 08:23 [From Mastisol Liquid Adhesive] storax Allergy Mild Blister Verified 05/08/24 08:23 [From Mastisol Liquid Adhesive] Review of Systems Review of Systems: Pertinent positives per HPI. Patient denies any fever, chills, rash, visual changes, dizziness, palpitations, nausea, vomiting, diarrhea, constipation, abdominal pain, or any urinary issues. [facility] Past Medical History Medical History Acute medial meniscus tear of left knee Anxiety Bilateral carpal tunnel syndrome Cervical pain Hernia History of foot fracture Kidney stones Ulnar neuropathy Surgical History Surgical History History of carpal tunnel release History of carpal tunnel surgery No pertinent past surgical history Family History Family History Father No problems noted. Mother Arthritis Sibling No problems noted. Social History Social History Years smoked: 5 Smoking status: Current every day smoker Tobacco type: cigars and e-cigarettes/vaping Second hand tobacco smoke exposure: No Additional smoking assessment comments: 2 or 3 cigars a day Alcohol intake: current Alcohol use details: 4/YEAR Substance use: current Substance use type: marijuana Other substance usage details: daily in evening Do You Feel Safe in your Home?: Yes Lack of Transportation: No Lack of Food: Never True Current Housing: I Have Housing Concerned About Future Housing: No Difficulty Paying Gas/Electric Bills: No Difficulty Paying for Meds: No Currently Unemployed: No Education: Associate Degree Difficulty w/ Childcare or Family Care: No Living arrangements: with family Occupation/Education: occupation 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 There is no relevant family history pertinent to the patient complaint. Exam Narrative: General: Well-developed, well nourished, in no apparent distress Head: Normocephalic, atraumatic Eyes: Pupils equally round and reactive to light bilaterally, EOM intact, sclera and conjunctive clear, no discharge, lids normal Ears: TMs intact and clear, ear canals clear, no drainage, grossly hearing normal. Nose: Nares patent, no discharge, no inflammation, no sinus tenderness. Mouth: Oropharynx without lesions or masses, good dentition, MMM. Neck: Supple, trachea midline Cardio: Regular rate and rhythm,
[2024-05-08 08:16] VITALS: BP 111/70; PULSE 65; RESP 18; TEMP 36.9; O2SAT 98
== END 2024-05-08 08:49 | disposition home or self-care (01) ==
PROVIDERS: Emergency Provider Nurse Practitioner Family; PCP Family Medicine
DX: J20.9 Acute bronchitis, unspecified (principal); Z20.822 Contact with and (suspected) exposure to COVID-19; F17.290 Nicotine dependence, other tobacco product, uncomplicated; F12.90 Cannabis use, unspecified, uncomplicated
CPT/HCPCS: 71046; 87426; 99213; G0463

== ENCOUNTER 2024-05-14 11:50 | Outpatient (CLI) | payer OTHER, SELFPAY ==
[2024-05-14 12:21] LABS: Appearance Urine Clear (Clear); Bacteria Urine None Seen /hpf; Bilirubin Urine Negative (Negative); Blood Urine Negative (Negative); Color Urine Dark Yellow (Yellow); Glucose Urine UA Negative (Negative); Ketones Urine Negative (Negative); Leukocyte Esterase Ur Trace LEU/UL (Negative); Need Manual Microscopic Reviewed; Nitrate Urine Positive (Negative); Non Pathogenic Casts 0-2; Protein Urine Negative (Negative); RBC Urine 0-2 /hpf (0-2); Specific Grav Ur 1.016 (1.001-1.035); Squamous Epithelial Cell Urine None Seen /hpf (Few); WBC Urine 0-5 /hpf (0-3)
[2024-05-14 12:25] LABS: Add Urine Microscopic? YES
== END 2024-05-14 11:51 | disposition home or self-care (01) ==
LOC: ANHLAB 11:52
PROVIDERS: PCP Family Medicine; Visit Provider Nurse Practitioner Adult Health
DX: R82.998 Other abnormal findings in urine (principal)
CPT/HCPCS: 81001

== ENCOUNTER 2024-06-07 09:31 | Outpatient (CLI) | payer OTHER, SELFPAY ==
[2024-06-07 09:55] LABS: Basophils Percent Auto 0.3 % (0.2-1.2); Eosinophils Absolute Auto 0.1 K/mm3 (0-0.3); Eosinophils Percent Auto 0.7 % (0-4.4); Hematocrit 46.2 % (42.0-52.0); Hemoglobin 15.5 g/dL (14.0-18.0); Immature Granulocyte Absolute 0.03 K/mm3 (0.00-0.031); Immature Granulocyte Percent A 0.3 % (0-0.5); Mean Corpuscular HGB Conc 33.5 g/dl (32-36); Mean Corpuscular Hemoglobin 29.2 pg (26-34); Mean Platelet Volume 10.8 fl (7.4-10.4); Monocytes Absolute Auto 0.5 K/mm3 (0.1-0.6); Monocytes Percent Auto 4.8 % (2.6-8.5); Neutrophils Absolute Auto 7.2 K/mm3 (1.3-6.7); Neutrophils Percent Auto 71.9 % (45.5-73.1); Platelet Count Result 225 k/mm3 (150-375); Red Blood Count 5.31 M/mm3 (4.6-6.20); Red Cell Distribution Width 13.3 % (11.5-14.5)
[2024-06-07 11:54] LABS: Free T4 Free Thyroxine 0.91 ng/mL (0.78-2.19)
[2024-06-07 12:39] LABS: Thyroid Stimulating Hormone 0.694 uIU/mL (0.465-4.680)
== END 2024-06-07 09:32 | disposition home or self-care (01) ==
LOC: ANHLAB 09:32
PROVIDERS: PCP Family Medicine; Visit Provider Family Medicine
DX: D72.829 Elevated white blood cell count, unspecified (principal); F41.9 Anxiety disorder, unspecified
CPT/HCPCS: 36415; 84439; 84443; 85025

== ENCOUNTER 2024-06-20 08:35 | Emergency (ER) | payer OTHER, SELFPAY ==
[2024-06-20 08:39] VITALS: BP 126/88; PULSE 62; RESP 16; TEMP 36.2; O2SAT 100
--- NOTE | 2024-06-20 10:26 | ED.DENTAL ---
HPI - Dental/Oral General Chief complaint: Dental/Oral Stated complaint: righ side face/head pain Time Seen by Provider: 06/20/24 10:06 History of Present Illness HPI Narrative: Patient is a 43-year-old male who presents to the emergency department this evening complaining of right sided to the/jaw pain. Patient states that yesterday he felt as though he cracked 1 of his tooth on the right and since then he has been having pain radiating to his right ear. Denies any fevers chills at home. Patient states that he has been taking ibuprofen at home without any relief of his pain. Patient admits that he has not seen a dentist in many years due to insurance issues. Denies any recent falls or trauma. Has any headaches. No additional symptoms or concerns at this time. Related Data Allergies Allergy/AdvReac Type Severity Reaction Status Date / Time ketorolac [From Toradol] Allergy Intermediate Rash Verified 06/20/24 08:36 alcohol Allergy Mild Blister Verified 06/20/24 08:36 [From Mastisol Liquid Adhesive] gum mastic Allergy Mild Blister Verified 06/20/24 08:36 [From Mastisol Liquid Adhesive] methyl salicylate Allergy Mild Blister Verified 06/20/24 08:36 [From Mastisol Liquid Adhesive] storax Allergy Mild Blister Verified 06/20/24 08:36 [From Mastisol Liquid Adhesive] Review of Systems Review of Systems: All systems are reviewed and are negative unless stated otherwise in the HPI. [facility] Past Medical History Medical History Abdominal pain Acute medial meniscus tear of left knee Anxiety Bilateral carpal tunnel syndrome Cervical pain Dark urine Elevated white blood cell count Hernia History of foot fracture Kidney stones Ulnar neuropathy Surgical History Surgical History History of carpal tunnel release History of carpal tunnel surgery No pertinent past surgical history Family History Family History Father No problems noted. Mother Arthritis Sibling No problems noted. Social History Social History Years smoked: 5 Smoking status: Current every day smoker Tobacco type: cigars and e-cigarettes/vaping Second hand tobacco smoke exposure: No Additional smoking assessment comments: 2 or 3 cigars a day Alcohol intake: current Alcohol use details: 4/YEAR Substance use: current Substance use type: marijuana Other substance usage details: daily in evening Do You Feel Safe in your Home?: Yes Lack of Transportation: No Lack of Food: Never True Current Housing: I Have Housing Concerned About Future Housing: No Difficulty Paying Gas/Electric Bills: No Difficulty Paying for Meds: No Currently Unemployed: No Education: Associate Degree Difficulty w/ Childcare or Family Care: No Living arrangements: with family Occupation/Education: occupation 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 HEENT: PERRL, no rhinorrhea, no post nasal drip, poor dental hygiene with multiple broken tooth and dental caries in the right upper and lower premolars and molars. Cardiovascular: Regular rate and rhythm, no murmurs, rubs or gallops, no peripheral edema. Respiratory: Clear to auscultation bilaterally, no tachypnea, no wheezing, no rhonchi, no rubs, no respiratory distress. Abdomen: Soft, nontender, nondistended, no rebound, no guarding, no peritoneal signs. Musculoskeletal: No joint swelling or deformity, normal muscle tone. Skin: No rashes or petechia, no signs of infection. Neurological: Alert and oriented to person, place, and time. Follows all commands. No
== END 2024-06-20 11:02 | disposition home or self-care (01) ==
LOC: ANHED 10:32
PROVIDERS: Emergency Provider Emergency Medicine; PCP Family Medicine
DX: K02.9 Dental caries, unspecified (principal); F17.210 Nicotine dependence, cigarettes, uncomplicated; F41.9 Anxiety disorder, unspecified; Z87.442 Personal history of urinary calculi
CPT/HCPCS: 99283

== ENCOUNTER 2025-04-17 19:35 | Emergency (ER) | payer OTHER, SELFPAY ==
--- NOTE | ~2025-04-17 | CT_ITS ---
EXAMINATION: CT abdomen pelvis wo con DATE: 04/17/2025 20:01 INDICATION: L flank pain, hx stones TECHNIQUE: Computed tomography (CT) of the abdomen and pelvis was performed without intravenous contr ast. Automated exposure control and iterative reconstruction technique were employed. The dose-length product was 259.06 mGy-cm. COMPARISON: 02/25/2023. FINDINGS: Lower thorax: Multiple stable peripheral granulomas. Liver: Normal. Biliary/Gallbladder: Gallbladder is normal. No bile duct dilation. Pancreas: No mass or duct dilation. Spleen: Normal. Adrenals:No mass. Kidneys: No suspicious mass, obstructing stone, or hydronephrosis. GI tract: No small or large bowel dilation. Normal appendix. Mesentery/Peritoneum: No ascites, mass, or free air. Retroperitoneum: No mass. Minimal atherosclerotic calcifications of intra-abdominal arterial vessels. Pelvis: 2 mm calcification in the dependent urinary bladder lumen. Bladder otherwise normal. Normal p rostate. Soft Tissues: Small fat-containing uncomplicated left inguinal hernia. Bones: No acute osseous finding. Stable mild anterior wedge deformity at L1. IMPRESSION: No acute abdominopelvic process detected. 2 mm calcification in the urinary bladder, may represent a recently passed stone. Reviewed, dictated and finalized at location K. IMPRESSION: No acute abdominopelvic process detected. 2 mm calcification in the urinary bladder, may represent a recently passed ston e.
[2025-04-17 19:39] VITALS: BP 160/111; PULSE 62; RESP 21; O2SAT 100
[2025-04-17 19:53] LABS: Basophils Absolute Auto 0.1 K/mm3 (0.0-0.1); Basophils Percent Auto 0.5 % (0.2-1.2); Eosinophils Absolute Auto 0.2 K/mm3 (0-0.3); Eosinophils Percent Auto 1.7 % (0-4.4); Hematocrit 45.7 % (42.0-52.0); Hemoglobin 15.3 g/dL (14.0-18.0); Immature Granulocyte Absolute 0.04 K/mm3 (0.00-0.031); Immature Granulocyte Percent A 0.3 % (0-0.5); Lymphocytes Absolute Auto 4.67 K/mm3 (0.9-3.2); Lymphocytes Percent Auto 33.5 % (18.3-44.2); Mean Corpuscular HGB Conc 33.5 g/dl (32-36); Mean Corpuscular Hemoglobin 28.7 pg (26-34); Mean Corpuscular Volume 85.6 fl (80-100); Mean Platelet Volume 11.3 fl (7.4-10.4); Monocytes Percent Auto 7.4 % (2.6-8.5); Neutrophils Absolute Auto 7.9 K/mm3 (1.3-6.7); Neutrophils Percent Auto 56.6 % (45.5-73.1); Platelet Count Result 297 k/mm3 (150-375); Red Blood Count 5.34 M/mm3 (4.6-6.20); Red Cell Distribution Width 12.6 % (11.5-14.5)
[2025-04-17 20:09] LABS: Anion Gap 13 mmol/L (4-12); Blood Urea Nitrogen 14 mg/dL (9-20); Calcium 9.3 mg/dL (8.4-10.2); Carbon Dioxide 23 mmol/L (22-30); Chloride 103 mmol/L (98-107); Estimated CRCL calculation 83 ml/min; Estimated Glomerular Filt Rate > 60; Glucose 109 mg/dL (65-110); Potassium 4.7 mmol/L (3.4-5.0); Sodium 139 mmol/L (137-145)
--- NOTE | 2025-04-17 20:13 | ED.BACK ---
HPI - Back Pain/Injury General Chief Complaint: Back Pain/Injury Stated Complaint: L FLANK PAIN Time Seen by Provider: 04/17/25 19:36 Source: patient Mode of arrival: ambulatory Limitations: no limitations History of Present Illness HPI Narrative: Patient is a 44-year-old male presents the ED with report of left flank pain. Patient reports pain began approximately 1 hour ago and has been severe and constant since then. Radiates slightly to his left lower abdomen. Reports nausea associated with the pain. Reports slight decreased urination today. Denies dysuria or hematuria. He does have history of previous kidney stones and states pain feels somewhat similar. Denies vomiting. Denies fevers. Has not taken anything for pain. Related Data Allergies Allergy/AdvReac Type Severity Reaction Status Date / Time ketorolac (From Toradol) Allergy Intermediate Rash Verified 04/17/25 19:35 alcohol (From Mastisol Allergy Mild Blister Verified 04/17/25 19:35 Liquid Adhesive) gum mastic (From Mastisol Allergy Mild Blister Verified 04/17/25 19:35 Liquid Adhesive) methyl salicylate (From Allergy Mild Blister Verified 04/17/25 19:35 Mastisol Liquid Adhesive) storax (From Mastisol Liquid Allergy Mild Blister Verified 04/17/25 19:35 Adhesive) Review of Systems Review of Systems: All systems reviewed & are unremarkable except as noted in HPI. All systems reviewed & are unremarkable except as noted in HPI and below PMFSH Past Medical History Medical History Decreased libido Erectile dysfunction Elevated white blood cell count Dark urine Abdominal pain Acute medial meniscus tear of left knee History of foot fracture Kidney stones Anxiety Ulnar neuropathy Cervical pain Bilateral carpal tunnel syndrome Hernia Surgical History Surgical History History of carpal tunnel release History of carpal tunnel surgery No pertinent past surgical history Family History Family History Father No problems noted. Mother Arthritis Sibling No problems noted. Social History Social History Social History: pt has recently d/c cigars - 11-16- Years smoked: 5 Smoking status: Current every day smoker Tobacco type: e-cigarettes/vaping Second hand tobacco smoke exposure: No Alcohol intake: current Alcohol use details: 4/YEAR Substance use: current Substance use type: marijuana Other substance usage details: daily in evening Do You Feel Safe in your Home?: Yes Lack of Transportation: No Lack of Food: Never True Current Housing: I Have Housing Concerned About Future Housing: No Difficulty Paying Gas/Electric Bills: No Difficulty Paying for Meds: No Currently Unemployed: No Education: Associate Degree Difficulty w/ Childcare or Family Care: No Living arrangements: with family Occupation/Education: occupation 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 HEAD: Normocephalic, atraumatic. RESPIRATORY: Airway patent, respirations nonlabored. Clear to auscultation bilaterally, no rales, rhonchi, wheezing. CARDIOVASCULAR: Regular rate and rhythm without murmurs, rubs, or gallops. ABDOMINAL: Soft, tenderness to palpation throughout left lower quadrant, nondistended. Normoactive BS. Positive CVA tenderness on left MUSCULOSKELETAL: Moves all extremities. No gross deformities. SKIN: Warm, dry, normal color. NEURO: A&O X3. Speech clear. No ataxic movements. PSYCHIATRIC: Appropriate mood and affect. Normal interaction. Course Vital Signs Vital signs: Vital Signs Pulse Rate 62 04/17/25 19:39 Respiratory Rate 21 H 04/17/25 19:39 Blood Pressure 160/111 H 04/17/25 19:39 Pulse Oximetry 100 04/17/25 19:39 Oxygen Delivery Room Air 04/17/25 19:39 Pulse Rate 62 04/17/25 19:39 Respiratory Rate 21 H 04/17/25 19:39 Blood Pressure 160/111 H 04/17/25 19:39 Pulse Oximetry 100 04/17/25 19:39 Oxygen Delivery Room Air 04/17/25 19:39 MDM - Back Pain/Injury MDM Narrative Medical decision making narrative: Patient presented to ED with left flank pain that began suddenly approximately 1 hour prior to arrival. Does have history of kidney stones. Vital signs stable upon arrival. Patient comfortable appearing, difficulty sitting still on stretcher. CBC with white blood cell count of 14.0. BMP is unremarkable. Stable electrolytes. Stable kidney function. UA with trace amount of RBC. No signs of infection. CT scan of abdomen/pelvis was obtained and without acute process. Does show 2 mm stone in bladder, may represent recently passed stone. I do feel this is consistent with patient's clinical picture. He does have history of previous stones. Pain is improved with supportive therapy, but still present. Will order additional pain medication. Otherwise feel patient is safe for D/C home with outpatient urology f/u. Will d/c with short course of pain and nausea medicine, Flomax, strainer. Given strict return precautions. He agrees with plan. Discharged in stable condition. Medical Records Attestation: I reviewed the patient's medical records. Lab Data Attestation: I reviewed the patient's lab results. 04/17/25 19:47 04/17/25 19:47 Labs: Lab Results 04/17/25 04/17/25 Range/Units 19:47 21:00 WBC 14.0 H (4.5-10.0) K/mm3 RBC 5.34 (4.6-6.20) M/mm3 Hgb 15.3 (14.0-18.0) g/dL Hct 45.7 (42.0-52.0) % MCV 85.6 (80-100) fl MCH 28.7 (26-34) pg MCHC 33.5 (32-36) g/dl RDW 12.6 (11.5-14.5) % Plt Count 297 (150-375) k/mm3 MPV 11.3 H (7.4-10.4) fl Immature Gran % (Auto) 0.3 (0-0.5) % Neut % (Auto) 56.6 (45.5-73.1) % Lymph % (Auto) 33.5 (18.3-44.2) % [place] % (Auto) 7.4 (2.6-8.5) % Eos % (Auto) 1.7 (0-4.4) % Baso % (Auto) 0.5 (0.2-1.2) % Lymph # (Auto) 4.67 H (0.9-3.2) K/mm3 [place] # (Auto) 1.0 H (0.1-0.6) K/mm3 Eos # (Auto) 0.2 (0-0.3) K/mm3 Baso # (Auto) 0.1 (0.0-0.1) K/mm3 Abs Immat Gran (auto) 0.04 H (0.00-0.031) K/mm3 Absolute Neuts (auto) 7.9 H (1.3-6.7) K/mm3 Absolute Nucleated RBC 0.000 (0.0-0.012) K/mm3 Nucleated RBC % 0.0 (0.0-0.2) % Sodium 139 (137-145) mmol/L Potassium 4.7 (3.4-5.0) mmol/L Chloride 103 (98-107) mmol/L Carbon Dioxide 23 (22-30) mmol/L Anion Gap 13 H (4-12) mmol/L BUN 14 (9-20) mg/dL Creatinine 1.05 (0.7-1.3) mg/dL Estim Creat Clear Calc 83 ml/min Estimated GFR > 60 (59 - ) Glucose 109 (65-110) mg/dL Calcium 9.3 (8.4-10.2) mg/dL Urine Color Yellow (Yellow) Urine Appearance Clear (Clear) Urine pH 7.0 (5.0-9.0) Ur Specific [place] 1.013 (1.001-1.035) Urine Protein Negative (Negative) mg/dL Urine Glucose (UA) Negative (Negative) mg/dL Urine Ketones Negative (Negative) mg/dL Ur Blood (Man) 1+ H (Negative) Urine Nitrate Negative (Negative) Urine Bilirubin Negative (Negative) Urine Urobilinogen 0.2 (<2.0) mg/dL Leukocyte Esterase Rfl Trace H (Negative) SENAIT/UL Urine RBC 3-5 H (0-2) /hpf Urine WBC 0-5 (0-3) /hpf Ur Squamous Epith Cells None seen (Few) /hpf Urine Bacteria None seen /hpf Urine Casts 0-2 Imaging Data Attestation: I personally reviewed and interpreted this imaging study as follows: Radiologist's impression: ITS Impressions Abdomen/Pelvis CT 04/17/25 20:16 IMPRESSION: No acute abdominopelvic process detected. 2 mm calcification in the urinary bladder, may represent a recently passed stone. Discharge Plan Discharge Clinical Impression: Left flank pain, Bladder stone Patient Disposition: Home Condition: Stable Instructions: Antibiotic Form, Kidney Stones (ED), Flank Pain (ED) Additional Instructions: Take Flomax daily as prescribed. Continue Tylenol and Ibuprofen as needed for pain. [place] as needed for more severe pain. Zofran for nausea. Stay well hydrated. Strain urine to collect stone. Follow-up with primary care doctor and/or urology for further evaluation as needed. Return to the ED if you experience worsening or severe pain, unable to keep down food/drink, fevers, uncontrollable nausea/vomiting, unable to urinate, or any other symptoms of concern. Patient Language: [place] Prescriptions: New hydrocodone-acetaminophen 5-325 mg tablet 1 tablet PO Q6H PRN (Reason: pain) Qty: 7 0RF tamsulosin [Flomax] 0.4 mg capsule 0.4 mg PO DAILY Qty: 7 0RF ondansetron 4 mg tablet,disintegrating 4 mg PO Q8H PRN (Reason: nausea and vomiting) Qty: 10 0RF No Action albuterol sulfate 90 mcg/actuation HFA aerosol inhaler 2 puff inhalation Q4-6H PRN (Reason: shortness of breath or wheezing) 30 Days Qty: 8.5 0RF fluoxetine 20 mg capsule 20 mg PO DAILY Qty: 30 2RF cyclobenzaprine 10 mg tablet 10 mg PO TID Qty: 30 0RF ondansetron 4 mg tablet,disintegrating 4 mg PO Q8H PRN (Reason: nausea and vomiting) Qty: 14 0RF famotidine 40 mg tablet See Rx Instructions .ROUTE .COMPLEX Qty: 90 0RF Dose Instruction: TAKE 1 TABLET BY MOUTH EVERY DAY AT BEDTIME Rx Instructions: TAKE 1 TABLET BY MOUTH EVERY DAY AT BEDTIME lorazepam 0.5 mg tablet 0.5 mg PO DAILY PRN (Reason: anxiety) Qty: 30 2RF Follow-up/Referrals: Iron Malin MD [Physician] - (UROLOGY) Marquise Hodges MD [Primary Care Provider] - Time of Disposition: 22:28
[2025-04-17] MEDS: SODIUM CHLORIDE 0.9% IV 1,000 ML 999 ML IV CONT (20:19)
[2025-04-17] MEDS: HYDROmorphone HCL INJ (*CRX) 2 MG/ML VIAL 0.5 MG IV PUSH ×2 (20:21→21:50)
[2025-04-17] MEDS: ONDANSETRON INJ 4 MG/2 ML VIAL IV PUSH (20:23)
[2025-04-17 21:13] LABS: Add Urine Microscopic? YES; Appearance Urine Clear (Clear); Bacteria Urine None Seen /hpf; Bilirubin Urine Negative (Negative); Blood Urine 1+ (Negative); Color Urine Yellow (Yellow); Glucose Urine UA Negative (Negative); Ketones Urine Negative (Negative); Leukocyte Esterase Ur Trace LEU/UL (Negative); Nitrate Urine Negative (Negative); Non Pathogenic Casts 0-2; Protein Urine Negative (Negative); Specific Grav Ur 1.013 (1.001-1.035); Squamous Epithelial Cell Urine None Seen /hpf (Few); Urobilinogen Urine 0.2 mg/dL (<2.0); WBC Urine 0-5 /hpf (0-3)
[2025-04-17 21:15] VITALS: PULSE 82; RESP 19; O2SAT 95
[2025-04-17] MEDS: CYCLOBENZAPRINE HCL 10 MG TABLET PO (21:49)
[2025-04-17] MEDS: IBUPROFEN IV 800 MG/200 ML 800 MG/200 ML BAG 400 MG IVPB (21:51)
[2025-04-17] MEDS: TAMSULOSIN HCL 0.4 MG CAPSULE PO (22:02)
[2025-04-17 22:37] VITALS: BP 114/68; PULSE 83; RESP 16; TEMP 36.6; O2SAT 94
== END 2025-04-17 22:37 | disposition home or self-care (01) ==
PROVIDERS: Emergency Provider Physician Assistant; PCP Family Medicine
DX: N21.0 Calculus in bladder (principal); F41.9 Anxiety disorder, unspecified; F17.290 Nicotine dependence, other tobacco product, uncomplicated; Z87.442 Personal history of urinary calculi; Z79.899 Other long term (current) drug therapy
CPT/HCPCS: 36415; 74176; 80048; 81001; 85025; 96361; 96374; 96375; 99284; A9270; J1171; J1741; J2405; J7030

== ENCOUNTER 2025-08-30 17:02 | Emergency (ER) | payer OTHER, SELFPAY ==
--- NOTE | 2025-08-30 17:03 | ED_ITS ---
HPI - Eye Problem General Chief complaint: Eye Problems Stated complaint: R eye Time Seen by Provider: 08/30/25 17:03 Source: patient Mode of arrival: ambulatory Limitations: no limitations History of Present Illness HPI Narrative: Patient is a 44-year-old male who presents with painful, red right eye. Patient states he rubbed eye around 1:00 p.m. felt the sensation of his contact go up into his eye. Patient has flushed eye with 2 full bottles of saline at home and used a Q-tip to try and a remove contact but was never able to visualize contact. Patient now has photosensitivity. Related Data Allergies Allergy/AdvReac Type Severity Reaction Status Date / Time ketorolac (From Toradol) Allergy Intermediate Rash Verified 08/30/25 17:26 alcohol (From Mastisol Allergy Mild Blister Verified 08/30/25 17:26 Liquid Adhesive) gum mastic (From Mastisol Allergy Mild Blister Verified 08/30/25 17:26 Liquid Adhesive) methyl salicylate (From Allergy Mild Blister Verified 08/30/25 17:26 Mastisol Liquid Adhesive) storax (From Mastisol Liquid Allergy Mild Blister Verified 08/30/25 17:26 Adhesive) Review of Systems Review of Systems: All systems reviewed & are unremarkable except as noted in HPI and below Constitutional: Constitutional: Denies body ache(s), Denies fever(s), Denies headache(s), Denies malaise and Denies weakness Eyes: Eyes: Denies blurry vision, Denies eye discharge, Reports irritation, Denies itchy eyes, Denies loss of vision and Reports eye pain ENT: Denies otalgia, Denies headache(s), Denies nasal discharge, Denies sinus pain and Denies sore throat Cardiovascular: Cardiovascular: Denies chest pain, Denies irregular heart rhy thm and Denies dyspnea Respiratory: Respiratory: Denies dyspnea Gastrointestinal: Gastrointestinal: Denies abdominal pain, Denies diarrhea, Denies nausea and Denies vomiting Musculoskeletal: Musculoskeletal: Denies back pain, Denies myalgias and Denies arthralgias Integumentary/Breasts: Skin/Breast: Denies pruritus and Denies rash Neurologic: Denies headache(s), Denies loss of vision and Denies weakness Psychiatric: Psychiatric: Reports no additional psychiatric complaints Allergic/Immunologic: Allergic/Immunologic: Reports itchy eyes PMFSH Past Medical History Medical History Left shoulder pain Decreased libido Erectile dysfunction Elevated white blood cell count Dark urine Abdominal pain Acute medial meniscus tear of left knee History of foot fracture Kidney stones Anxiety Ulnar neuropathy Cervical pain Bilateral carpal tunnel syndrome Hernia Surgical History Surgical History History of carpal tunnel release History of carpal tunnel surgery No pertinent past surgical history Family History Family History Father No problems noted. Mother Arthritis Sibling No problems noted. Social History Social History Social History: pt has recently d/c cigars - 11-16-24 Years smoked: 5 Tobacco type: e-cigarettes/vaping Second hand tobacco smoke exposure: No Alcohol intake: current Alcohol use details: 4/YEAR Substance use: current Substance use type: marijuana Other substance usage details: daily in evening Do You Feel Safe in your Home?: Yes Lack of Transportation: No Lack of Food: Never True Current Housing: I Have Housing Concerned About Future Housing: No Difficulty Paying Gas/Electric Bills: No Difficulty Paying for Meds: No Currently Unemployed: No Education: Associate Degree Difficulty w/ Childcare or Family Care: No Living arrangements: with family Occupation/Education: occupation 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 There is no relevant family history pertinent to the presenting complaint. Exam Const: General: cooperative, healthy appearing, comfortable, no acute distress and well nourished Nutritional Appearance: well nourished Orientation/consciousness: patient oriented x3 Limitations: no limitations HENMT: Head: normal to inspection, normocephalic and atraumatic Ears: external ears normal Face/Nose/Sinus: Normal external nose present, normal facial exam and face symmetric Face and sinus: normal facial exam and face symmetric Mouth: Yes lip normal Eyes: General: appearance normal, both eyes and all related structures Visual Thrasher: normal visual thrasher by confrontation Alignment and Position: alignment normal and position normal Periorbital: periorbital findings normal Eyelids: eyelids normal Conjunctivae: conjunctival abnormality right conjunctival injection Sclera: scleral abnormality right scleral exudate, scleral injection diffuse and scleral tenderness Cornea: corneas abnormal on the right fluorescein used and abrasion at the following clock position (3 ); no contact lens present and fluorescein used Pupils: Equal, round and reactive pupils present EOM: EOMs intact bilaterally Direct Ophthalmoscopy: no photophobia Other: No hyphema, no foreign body under the lids. Neck: Neck: normal visual inspection, full ROM, no lymphadenopathy and no meningeal signs Chest: Chest palpation & inspection: normal inspection of the chest Resp: Effort & Inspection: normal respiratory effort and able to speak in complete sentences Auscultation: clear to auscultation bilaterally Cardio: Rate: regular rate Rhythm: regular rhythm Heart sounds: S1 normal heart sound present and S2 normal heart sound present GI: Inspection: normal to inspection Skin: General skin exam: normal color and no rashes or lesions noted Neuro: General: patient oriented x3, moves all extremities and no meningeal signs Cranial nerves: Yes Equal, round and reactive pupils present Speech: normal speech Gait exam (Neuro): Normal gait present Extrem: General: normal to inspection, full ROM and no edema Psych: Appearance: grossly normal and well kempt Mental Status: mental status grossly normal Speech and movement: Normal speech and movement present Affect: normal affect Attitude: cooperative Thought process: Normal thought process present Course Course Emergency Course: Patient is aware of diagnosis, understands and agrees to treatment plan. Anticipatory guidance given. Patient agrees to follow-up as directed and is aware of reasons to seek care at the emergency department. Portions of this record may have been created with voice recognition software Level of Care: Express Care Visit Vital Signs Vital signs: Reviewed MDM - Eye Problem MDM Narrative Medical decision making narrative: Corneal abrasion present on exam with staining. Patient states he is relieved to have some temporary relief of pain with eye drops. Explained we cannot give him the eyedrops Pt well hydrated appearing, in no respiratory distress, hemodynamically stable. Recommend supportive care. The patient is stable at time of discharge the clinical impression was discussed and the patient was given the opportunity to ask questions, which were addressed as completely as possible given the information available at present. Anticipatory guidance and return to care precautions were discussed and the importance of primary care follow-up was stressed and encouraged. The patient voiced understanding of the plan, indications to return, and the need for follow-up. Exam findings show no acute concerns or changes Patient is appropriate for outpatient treatment and follow-up. Differential Diagnosis Differential diagnosis: Likely corneal abrasion, conjunctivitis, periorbital cellulitis, corneal ulcer and other (foreign body) Medical Records Attestation: I reviewed the patient's medical records. Discharge Plan Discharge Clinical Impression: Corneal abrasion Patient Disposition: Home Condition: Stable Instructions: Corneal Abrasion (ED) Additional Instructions: Corneal abrasions will heal in 1-2 days. Use antibiotics as prescribed Keep your eye shut and wearing sunglasses or staying in low light to avoid light sensitivity. Do not touch or rub your eye or use a fabric patch (pirate's patch) For pain, you may take: Tylenol 650-1000mg by mouth every 4-6 hours. Do not exceed 4000mg in 24 hours. Advil (Ibuprofen) 600 mg by mouth every 6 hours. Do not exceed 2400mg in 24 hours. 8 AM: Tylenol 11 AM: Ibuprofen 2 PM: Tylenol 5 PM: Ibuprofen 8 PM: Tylenol 11 PM: Ibuprofen 2 AM: Tylenol 5 AM: Ibuprofen Follow-up with PCP or wheel shop supervisor if condition is not improving in 2-3days. [facility]: [place]- [phone] [place] [phone] [facility] [phone] [place]: [facility] [phone] or [phone] [facility] [phone] [facility] [phone] [facility] [phone] [facility] Ophthalmology- [phone] Patient Language: [place] Prescriptions: New ofloxacin 0.3 % drops See Rx Instructions .ROUTE .COMPLEX Qty: 10 0RF Rx Instructions: put 1-2 drps into right eye every 2-4 h x 2 days, then 1-2 drps 4 times/day days 3-7 Follow-up/Referrals: Marquise Hodges MD [Primary Care Provider, Family Practice] - 3 Days Stand Alone Forms: Work/School Release IP Time of Disposition: 17:41
[2025-08-30 17:11] VITALS: BP 135/81; PULSE 78; RESP 18; TEMP 36.7; O2SAT 100
[2025-08-30] MEDS: TETRACAINE HCL 0.5% OPHTH SOLN 4 ML BTL RIGHT EYE (17:30)
[2025-08-30] MEDS: DACRIOSE EYE IRRIGATION 118 ML BOTTLE RIGHT EYE (17:31)
[2025-08-30] MEDS: FLUORESCEIN SOD 1 MG/STRIP RIGHT EYE (17:31)
== END 2025-08-30 17:48 | disposition home or self-care (01) ==
PROVIDERS: Emergency Provider Nurse Practitioner Family; PCP Family Medicine
DX: S05.01XA Injury of conjunctiva and corneal abrasion without foreign body, right eye, initial encounter (principal); X58.XXXA Exposure to other specified factors, initial encounter; F17.290 Nicotine dependence, other tobacco product, uncomplicated; F12.90 Cannabis use, unspecified, uncomplicated
CPT/HCPCS: 99213; A9270; G0463